=== PATIENT | male | born 1945 | race Caucasian/White ===

== ENCOUNTER → 2017-12-31 11:30 | Outpatient (CLI) | payer MEDICARE, OTHER, SELFPAY | PROVIDERS: PCP Internal Medicine; Visit Provider Internal Medicine Interventional Cardiology | DX: R07.9 Chest pain, unspecified (principal); E78.5 Hyperlipidemia, unspecified; R00.1 Bradycardia, unspecified | CPT/HCPCS: 99213 ==

== ENCOUNTER → 2017-12-31 12:15 | Outpatient (CLI) | payer MEDICARE, OTHER, SELFPAY | PROVIDERS: PCP Internal Medicine; Visit Provider Internal Medicine Interventional Cardiology | DX: R07.89 Other chest pain (principal) | CPT/HCPCS: 93005; 93010; 99213 ==

== ENCOUNTER 2018-12-30 08:15 | Outpatient (CLI) | payer MEDICARE, OTHER, SELFPAY | END 2018-12-30 08:35 | PROVIDERS: PCP Internal Medicine; Visit Provider Internal Medicine Interventional Cardiology | DX: R07.89 Other chest pain (principal); R00.1 Bradycardia, unspecified | CPT/HCPCS: 93005; 93010; 99213 ==

== ENCOUNTER → 2020-01-05 12:18 | Outpatient (BNVA) | payer MEDICARE, SELFPAY | PROVIDERS: PCP Internal Medicine; Visit Provider Internal Medicine Cardiovascular Disease | DX: R07.89 Other chest pain (principal) | CPT/HCPCS: 99213 ==